=== PATIENT | male | born 1965 | race African-American/Black ===

== ENCOUNTER → 2020-05-09 00:53 | Outpatient (CLI) | payer MEDICARE, MEDICAID, SELFPAY ==
[2020-05-09 19:48] LABS: SARS-CoV-2 RNA PCR Negative
== END ==
PROVIDERS: Visit Provider Internal Medicine Critical Care Medicine
DX: Z20.822 Contact with and (suspected) exposure to COVID-19 (principal)
CPT/HCPCS: C9803; U0003; U0005

== ENCOUNTER 2020-05-12 09:01 | Outpatient (CLI) | payer MEDICARE, MEDICAID, SELFPAY ==
--- NOTE | 2020-06-01 13:07 | WPDSLEEPSTUD ---
Sleep Study Ordering Provider: Moisés Sage, Interpreting Physician: Yoly Jaime MD Sleep Study Type: CPAP Titration Height: 1.83 m Weight: 104.965 kg Body Mass Index: 31.4 Neck Circumference (inches): 17 [place]: 3 Reason for Sleep Study nocturnal polysomnogram 10/23/2019 [facility] in [place] with moderate obstructive sleep apnea with an AHI 22.7 with lowest saturation 89% Sleep History Mikhail Gonzalez is a 55 year old man with a prior sleep study with moderate obstructive sleep apnea as discussed above. He wakes up during the night including the high tension tester hours. He occasionally awakens from sleep feeling short of breath, with heartburn belching or coughing. He occasionally snores. His snoring is never loud enough that others complain about it. He occasionally has trouble sleep with a cold. He rarely wakes up gasping for breath at night. He never has breathing problems at night observed by others. He occasionally sweats excessively night. He does not notice his heart pounding or beating irregularly night. He rarely falls asleep during the day. He does not fall asleep involuntarily or while driving. He does not fall asleep while exerting physical effort. He does not have loss of muscle tone with strong emotion. He does not have daytime difficulties due to excessive sleepiness. He rarely feels afraid to go to sleep. he does not feel paralyzed on waking or falling asleep. He does not have vivid dreamlike scenes upon awakening or falling asleep. He does not have nightmares. He occasionally remembers his dreams and occasionally has racing thoughts. He rarely feels sad depressed or anxious. He does not have muscular tension, does not notice part of his body jerking, does not kick at night and does not have crawling or aching feelings in his legs at night. He denies any kind of leg pain during the night. He does not have morning jaw pain. He does not grind his teeth during sleep. He does not bothered by pain during the day and is not awakened by pain at night. He occasionally wakes up feeling stiff in the morning with sore achy muscles and pain in the neck and spine. He has headaches and dizziness. He takes antacids regularly. Normal bedtime is 11:00 p.m. falling asleep within 30 minutes, waking 3-4 times at night to urinate, returning to sleep within 30 minutes. He wakes the morning between 4 and 5:00 a.m.. He estimates getting 5 hours of sleep at night normally. On the weekends, he stays awake later, between 11:00 p.m. and midnight, wakes later, between 6:00 and 7:00 a.m.. He does not generally take naps. A short nap is not refreshing. He frequently awakens feeling refreshed in the morning. He occasionally has heartburn at night and occasionally has morning headaches. Habits: No caffeine alcohol or recreational drugs PMFSH Past Medical History Medical History (Updated 06/01/20 @ 13:46 by Yoly Jaime MD) COPD (chronic obstructive pulmonary disease) Depression History of pneumothorax Mild intermittent asthma without complication Obstructive sleep apnea Seasonal allergic rhinitis Seasonal allergies Surgical History Surgical History (Updated 06/01/20 @ 13:40 by Yoly Jaime MD) History of thoracic surgery Feb 2013; Left VATS blebectomy and pleurodesis suspected due to MJ use; ptx x 2 Social History Social History Smoking status: Never smoker Alcohol intake: never Substance use: current Substance use type: marijuana Other substance usage details: daily marijuana Medications Medications: albuterol sulfate 2 puffs q.4 hours p.r.n. atorvastatin 10 mg at night Symbicort 160/4.52 puffs twice a day vitamin-D 2000 IU daily cyclobenzaprine 10 mg t.i.d. p.r.n. muscle spasms hydrocodone/acetaminophen 10/325 mg 1 q.8 hours p.r.n. pain montelukast 10 mg HS omeprazole 40 mg daily tamsulosin 0.4 mg daily
[2020-06-01 13:15] VITALS: BMI 31.4
== END 2020-05-12 09:02 | disposition home or self-care (01) ==
LOC: ANHCSM 09:02
PROVIDERS: Visit Provider Student in an Organized Health Care Education/Training Program
DX: G47.33 Obstructive sleep apnea (adult) (pediatric) (principal); J44.9 Chronic obstructive pulmonary disease, unspecified; F32.9 Major depressive disorder, single episode, unspecified; E66.9 Obesity, unspecified; Z68.31 Body mass index [BMI] 31.0-31.9, adult
CPT/HCPCS: 95811

== ENCOUNTER 2022-02-16 17:34 | Emergency (ER) | payer MEDICARE, MEDICAID, SELFPAY ==
[2022-02-16 18:23] VITALS: BP 142/88; PULSE 69; RESP 18; TEMP 37.2; O2SAT 100
[2022-02-16 20:15] VITALS: BP 144/95; PULSE 61; RESP 16; O2SAT 100
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
--- NOTE | 2022-02-16 21:12 | ED.BACK ---
HPI - Back Pain/Injury General Chief Complaint: Back Pain/Injury Stated Complaint: back pain Time Seen by Provider: 02/16/22 20:24 Source: patient Mode of arrival: ambulatory Limitations: no limitations History of Present Illness HPI Narrative: 57-year-old male with history of chronic back pain presents today with increasing back pain with radiation down the right leg. Patient denies any recent injury but states he was seen about a month ago due to a fall where imaging was done at [facility]. Patient denies any known trauma. Patient denies any urinary incontinence, bowel incontinence, saddle paresthesia, leg weakness, or IV drug usage. Denies any fevers did endorse some nausea with small amount of vomiting this morning but this does happen occasionally with him. Patient denies any dysuria, hematuria, urinary urgency. He is currently on hydrocodone tens and Flexeril as needed at home which the pain management doctor has been prescribing him. His next appointment is in March. Related Data Home Medications Medication Instructions Recorded Confirmed albuterol 90 mcg/actuation aerosol mcg inhalation 01/19/22 01/19/22 inhaler atorvastatin 20 mg tablet 20 mg PO DAILY 01/19/22 01/19/22 budesonide 160 mcg-glycopyr 9 2 inh inhalation BID 01/19/22 01/19/22 mcg-formot 4.8 mcg/actuation HFA inhaler (Breztri Aerosphere) cyclobenzaprine 10 mg tablet 10 mg PO ONCE 01/19/22 01/19/22 fluticasone propionate 220 1 puff inhalation Q12H 01/19/22 01/19/22 mcg/actuation HFA aerosol inhaler hydrocodone 10 mg-acetaminophen 1 tablet PO Q8H 01/19/22 01/19/22 325 mg tablet montelukast 10 mg tablet 10 mg PO DAILY 01/19/22 01/19/22 (Singulair) omeprazole 40 mg capsule,delayed 40 mg PO DAILY 01/19/22 01/19/22 release tadalafil 2.5 mg tablet (Cialis) 2.5 mg PO DAILY 01/19/22 01/19/22 Allergies Allergy/AdvReac Type Severity Reaction Status Date / Time No Known Allergies Allergy Unverified 02/16/22 18:32 Review of Systems Review of Systems: CONSTITUTIONAL: Denies fever, chills, or sweats. CARDIOVASCULAR: Denies chest pain, palpitations, or edema. RESPIRATORY: Denies cough or dyspnea. GASTROINTESTINAL: Episode of nausea with small amount of vomiting this morning. Denies abdominal pain, or diarrhea. GENITOURINARY: Denies dysuria or hematuria. SKIN: Denies rash or itching. MUSCULOSKELETAL: Low back pain radiating down right leg. Similar to his chronic pain except more intense. Denies joint pain, or myalgia. NEUROLOGIC: Denies headache, numbness, dizziness, or weakness. PSYCHIATRIC: Denies anxiety or depression. [facility] Past Medical History Medical History COPD (chronic obstructive pulmonary disease) Depression History of pneumothorax Mild intermittent asthma without complication Obstructive sleep apnea Seasonal allergic rhinitis Seasonal allergies Surgical History Surgical History History of thoracic surgery Feb 2013; Left VATS blebectomy and pleurodesis suspected due to MJ use; ptx x 2 Social History Social History Smoking status: Never smoker Alcohol intake: current Substance use: current Substance use type: marijuana Other substance usage details: daily marijuana Current Housing: Decline to Answer Concerned About Future Housing: Decline to Answer Difficulty Paying Gas/Electric Bills: Decline to Answer Difficulty Paying for Meds: Decline to Answer Currently Unemployed: Decline to Answer Education: Decline to Answer Difficulty w/ Childcare or Family Care: Decline to Answer Exam Narrative: GENERAL: Well-appearing, well-nourished, and in no acute distress. HEAD: Normocephalic, atraumatic. NECK: Supple. No adenopathy or masses. CHEST: Clear to auscultation. No respiratory distress. No wheezes rales or rhonchi HEART: Regu
[2022-02-16] MEDS: KETOROLAC 30 MG/ML VIAL (*BKC) IM (21:19)
[2022-02-16] MEDS: LIDOCAINE 5% PATCH 1 PATCH TRANSDERM (21:48)
[2022-02-16 22:10] VITALS: BP 144/88; PULSE 88; RESP 18; O2SAT 99
== END 2022-02-16 22:10 | disposition home or self-care (01) ==
PROVIDERS: Emergency Provider Nurse Practitioner Family; PCP Physician Assistant
DX: M54.41 Lumbago with sciatica, right side (principal); F32.9 Major depressive disorder, single episode, unspecified; J45.909 Unspecified asthma, uncomplicated; G47.30 Sleep apnea, unspecified
CPT/HCPCS: 96372; 99283; A9270; J1885